=== PATIENT | female | born 1995 | race Caucasian/White ===

== ENCOUNTER 2017-04-15 08:02 | Emergency (ER) | payer OTHER ==
[~2017-04-15] VITALS: Ht 175.3 cm; Wt 75.0 kg
[2017-04-15 08:21] VITALS: BP 133/86; PULSE 107; RESP 16; TEMP 98.9; O2SAT 99
[2017-04-15 09:12] LABS: AUTOMATED NEUTROPHIL # 4.7 TH/MM3 (1.8-7.7); BASOPHIL % 0.7 % (0.0-2.0); EOSINOPHIL % 0.7 % (0.0-4.0); HEMATOCRIT 44.4 % (35.0-46.0); HEMOGLOBIN 14.9 GM/DL (11.6-15.3); LYMPH % 23.6 % (9.0-44.0); LYMPHOCYTE # 1.6 TH/MM3 (1.0-4.8); MEAN CELL VOLUME 85.7 FL (80.0-100.0); MEAN CORPUSCULAR HEMOGLOBIN 28.7 PG (27.0-34.0); MEAN CORPUSCULAR HGB CONC 33.6 % (32.0-36.0); MEAN PLATELET VOLUME 8.6 FL (7.0-11.0); MONOCYTE # 0.5 TH/MM3 (0-0.9); PLATELET COUNT 221 TH/MM3 (150-450); RED BLOOD COUNT 5.18 MIL/MM3 (4.00-5.30); RED CELL DISTRIBUTION WIDTH 13.6 % (11.6-17.2); WHITE BLOOD COUNT 6.9 TH/MM3 (4.0-11.0)
[2017-04-15 09:24] LABS: ALBUMIN 4.2 GM/DL (3.4-5.0); AST (GOT) 19 U/L (15-37); BLOOD UREA NITROGEN 6 MG/DL (7-18); CALCIUM 8.9 MG/DL (8.5-10.1); CHLORIDE 105 MEQ/L (98-107); CREATININE 0.77 MG/DL (0.50-1.00); GLOMERULAR FILTRATION RATE 92 ML/MIN (>89); GLUCOSE,RANDOM 87 MG/DL (74-106); SODIUM (NA) 137 MEQ/L (136-145)
[2017-04-15 09:25] LABS: ALT (GPT) 35 U/L (10-53)
[2017-04-15 09:27] LABS: ALKALINE PHOSPHATASE 88 U/L (45-117); TOTAL BILIRUBIN ADULT 0.4 MG/DL (0.2-1.0); TOTAL PROTEIN 8.3 GM/DL (6.4-8.2)
--- NOTE | 2017-04-15 09:34 | PD ---
HPI Chief Complaint: Psychiatric Symptoms Time Seen by Provider: 09:16 Travel History International Travel<30 days: No Contact w/Intl Traveler<30days: No Traveled to known affect area: No History of Present Illness HPI The patient was seen and examined in the presence of the nurse. This patient has been having depression and suicidal ideations. She presents as a Srinivasan act. 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 She denies alcohol or drug use. Some severity is moderate. Duration is 2 weeks. No alleviating factors. No exacerbating factors. PFSH Past Medical History Medical History: Denies Significant Hx Tetanus Vaccination: < 5 Years ?: Not Past Surgical History Surgical History: No Previous Surgery Social History Alcohol Use: No Tobacco Use: No Substance Use: No Allergies-Medications (Allergen,Severity, Reaction): Coded Allergies: latex (Verified Allergy, Unknown, 04/15/17) Reported Meds & Prescriptions Reported Meds & Active Scripts Active No Active Prescriptions or Reported Medications Review of Systems General / Constitutional: No: Fever Eyes: No: Visual changes HENT: No: Headaches Cardiovascular: No: Chest Pain or Discomfort Respiratory: No: Shortness of Breath Gastrointestinal: No: Abdominal Pain Genitourinary: No: Dysuria Musculoskeletal: No: Pain Skin: No Rash Neurologic: No: Weakness Psychiatric: Positive: Depression, Suicidal Ideations Endocrine: No: Polydipsia Hematologic/Lymphatic: No: Easy Bruising Physical Exam Narrative GENERAL: Well-nourished, well-developed patient in no apparent distress. SKIN: Focused skin assessment reveals no rash and nodules. Skin is Warm and dry. HEAD: Atraumatic. Normocephalic. EYES: Pupils equal and round. No scleral icterus. No injection or drainage. ENT: No nasal bleeding or discharge. Mucous membranes pink and moist. NECK: Trachea midline. No JVD. CARDIOVASCULAR: Regular rate and rhythm. No murmur appreciated. RESPIRATORY: No accessory muscle use. Clear to auscultation. Breath sounds equal bilaterally. GASTROINTESTINAL: Abdomen soft, non-tender, nondistended. Hepatic and splenic margins not palpable. MUSCULOSKELETAL: No obvious deformities. No clubbing. No cyanosis. No edema. NEUROLOGICAL: Awake and alert. No obvious cranial nerve deficits. Motor grossly within normal limits. Normal speech. PSYCHIATRIC: Depressed mood and flat affect; insight and judgment reduced . Data Data Last Documented VS Vital Signs Date Time Temp Pulse Resp B/P (MAP) Pulse Ox O2 Delivery O2 Flow Rate FiO2 04/15/17 08:21 98.9 107 16 133/86 (102) 99 Orders Orders Complete Blood Count With Diff (04/15/17 08:28) Comprehensive Metabolic Panel (04/15/17 08:28) Psych Screen (04/15/17 08:28) Drug Screen, Random Urine (04/15/17 08:29) Ed Urine Pregnancytest Poc (04/15/17 09:31) Labs Laboratory Tests Test 04/15/17 08:45 White Blood Count 6.9 TH/MM3 Red Blood Count 5.18 MIL/MM3 Hemoglobin 14.9 GM/DL Hematocrit 44.4 % Mean Corpuscular Volume 85.7 FL Mean Corpuscular Hemoglobin 28.7 PG Mean Corpuscular Hemoglobin Concent 33.6 % Red Cell Distribution Width 13.6 % Platelet Count 221 TH/MM3 Mean Platelet Volume 8.6 FL Neutrophils (%) (Auto) 68.0 % Lymphocytes (%) (Auto) 23.6 % Monocytes (%) (Auto) 7.0 % Eosinophils (%) (Auto) 0.7 % Basophils (%) (Auto) 0.7 % Neutrophils # (Auto) 4.7 TH/MM3 Lymphocytes # (Auto) 1.6 TH/MM3 Monocytes # (Auto) 0.5 TH/MM3 Eosinophils # (Auto) 0.0 TH/MM3 Basophils # (Auto) 0.0 TH/MM3 CBC Comment DIFF FINAL Differential Comment Blood Urea Nitrogen 6 MG/DL Creatinine 0.77 MG/DL Random Glucose 87 MG/DL Total Protein 8.3 GM/DL Albumin 4.2 GM/DL Calcium Level 8.9 MG/DL Alkaline Phosphatase 88 U/L Aspartate Amino Transf (AST/SGOT) 19 U/L Alanine Aminotransferase (ALT/SGPT) 35 U/L Total Bilirubin 0.4 MG/DL Sodium Level 137 MEQ/L Potassium Level 3.8 MEQ/L Chloride Level 105 MEQ/L Carbon Dioxide Level 25.0 MEQ/L Anion Gap 7 MEQ/L Estimat Glomerular Filtration Rate 92 ML/MIN Urine Opiates Screen NEG Urine Barbiturates Screen NEG Urine Amphetamines Screen NEG Urine Benzodiazepines Screen NEG Urine Cocaine Screen NEG Urine Cannabinoids Screen NEG MDM Medical Decision Making Medical Screen Exam Complete: Yes Emergency Medical Condition: Yes Medical Record Reviewed: Yes Differential Diagnosis Adjustment disorder, depression, suicidal ideation Narrative Course I have reviewed the patient's electronic medical record. Ordered medical clearance workup. CBC is normal Metabolic profile is normal LFTs are normal Urine is negative Toxicology screen is negative Psych screen has been ordered as she is here under Srinivasan act. She is agreeable and willing to discuss things with them. Patient is medically stable and will get psychiatric evaluation to determine disposition Diagnosis Primary Impression: Depression with suicidal ideation Scripts No Active Prescriptions or Reported Meds Spencer Mcdonough MD Apr 15, 2017 09:34
[2017-04-15 11:02] VITALS: BP 124/89; PULSE 99; RESP 16; TEMP 98.7; O2SAT 98
--- NOTE | 2017-04-15 16:01 | PD ---
Physical Exam Date Seen by Provider: Apr 15, 2017 Time Seen by Provider: 16:00 Narrative 22-year-old female previously medically cleared for Srinivasan act, and psychiatric evaluation. Patient was seen by psychiatric services and felt to be psychiatrically stable for discharge. She remains medically stable at this time. Patient is felt safe for discharge. Patient to follow-up per psychiatric note. Data Data Last Documented VS Vital Signs Date Time Temp Pulse Resp B/P (MAP) Pulse Ox O2 Delivery O2 Flow Rate FiO2 04/15/17 11:02 98.7 99 16 124/89 (101) 98 Room Air Orders Orders Complete Blood Count With Diff (04/15/17 08:28) Comprehensive Metabolic Panel (04/15/17 08:28) Psych Screen (04/15/17 08:28) Drug Screen, Random Urine (04/15/17 08:29) Ed Urine Pregnancytest Poc (04/15/17 09:31) Diet Regular Basic (04/15/17 Lunch) Labs Laboratory Tests Test 04/15/17 08:45 White Blood Count 6.9 TH/MM3 Red Blood Count 5.18 MIL/MM3 Hemoglobin 14.9 GM/DL Hematocrit 44.4 % Mean Corpuscular Volume 85.7 FL Mean Corpuscular Hemoglobin 28.7 PG Mean Corpuscular Hemoglobin Concent 33.6 % Red Cell Distribution Width 13.6 % Platelet Count 221 TH/MM3 Mean Platelet Volume 8.6 FL Neutrophils (%) (Auto) 68.0 % Lymphocytes (%) (Auto) 23.6 % Monocytes (%) (Auto) 7.0 % Eosinophils (%) (Auto) 0.7 % Basophils (%) (Auto) 0.7 % Neutrophils # (Auto) 4.7 TH/MM3 Lymphocytes # (Auto) 1.6 TH/MM3 Monocytes # (Auto) 0.5 TH/MM3 Eosinophils # (Auto) 0.0 TH/MM3 Basophils # (Auto) 0.0 TH/MM3 CBC Comment DIFF FINAL Differential Comment Blood Urea Nitrogen 6 MG/DL Creatinine 0.77 MG/DL Random Glucose 87 MG/DL Total Protein 8.3 GM/DL Albumin 4.2 GM/DL Calcium Level 8.9 MG/DL Alkaline Phosphatase 88 U/L Aspartate Amino Transf (AST/SGOT) 19 U/L Alanine Aminotransferase (ALT/SGPT) 35 U/L Total Bilirubin 0.4 MG/DL Sodium Level 137 MEQ/L Potassium Level 3.8 MEQ/L Chloride Level 105 MEQ/L Carbon Dioxide Level 25.0 MEQ/L Anion Gap 7 MEQ/L Estimat Glomerular Filtration Rate 92 ML/MIN Urine Opiates Screen NEG Urine Barbiturates Screen NEG Urine Amphetamines Screen NEG Urine Benzodiazepines Screen NEG Urine Cocaine Screen NEG Urine Cannabinoids Screen NEG MDM Medical Record Reviewed: Yes Supervised Visit with RICHARD: Yes Narrative Course 22-year-old female previously medically cleared for Srinivasan act, and psychiatric evaluation. Patient was seen by psychiatric services and felt to be psychiatrically stable for discharge. She remains medically stable at this time. Patient is felt safe for discharge. Patient to follow-up per psychiatric note. Diagnosis Primary Impression: Depression with suicidal ideation Patient Instructions: General Instructions Scripts No Active Prescriptions or Reported Meds Disposition: 01 DISCHARGE HOME Condition: Stable Corona Dodd Apr 15, 2017 16:01
--- NOTE | 2017-04-15 18:44 | PD.PSY.CON ---
Provisional Diagnosis Admission Date History of Present Illness Service Psychiatry Consult Requested By ER Reason for Consult SI Primary Care Physician Cipriano Goel MD HPI The patient is a 22-year-old woman, domiciled alone in [facility], 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 On psychiatric evaluation today patient is a little bit anxious, tearful, requesting to be discharged. Patient says that she made a mistake his stated that she wanted to kill herself. She says that she is seeing very desperately and overwhelmed with her job. She says that she cannot control her students and she feels like the situation got out hands. She reports frustration, guiltiness, but she denies hopelessness, denies anhedonia, denies worthlessness , she denies suicidal and homicidal ideation, she denies visual and auditory hallucinations. She denies the use of illegal drugs and alcohol. I spoke for collateral information with Arjun Meadows, who is her father, and he confirms that the patient basically doesn't have any psychiatric history other than mild depression. Says that this is the first job of his daughter and she has been feeling overwhelmed for a couple weeks now. He does not feel that she is suicidal, she is just very anxious. He agrees with taken the patient with him to his house and her mother house to take care closely of her. Review of Systems Constitutional: DENIES: Diaphoretic episodes, Fatigue, Fever, Weight gain, Weight loss, Chills, Dizziness, Change in appetite, Night Sweats Endocrine: DENIES: Abnorml menstrual pattern, Heat/cold intolerance, Polydipsia , Polyuria, Polyphagia Eyes: DENIES: Blurred vision, Diplopia, Eye inflammation, Eye pain, Vision loss , Photosensitivity, Double Vision Ears, nose, mouth, throat: DENIES: Tinnitus, Hearing loss, Vertigo, Nasal discharge, Oral lesions, Throat pain, Hoarseness, Ear Pain, Running Nose, Epistaxis, Sinus Pain, Toothache, Odynophagia Respiratory: DENIES: Apneas, Cough, Snoring, Wheezing, Hemoptysis, Sputum production, Shortness of breath Cardiovascular: DENIES: Chest pain, Palpitations, Syncope, Dyspnea on Exertion , PND, Lower Extremity Edema, Orthopnea, Claudication Gastrointestinal: DENIES: Abdominal pain, Black stools, Bloody stools, Constipation, Diarrhea, Nausea, Vomiting, Difficulty Swallowing, Anorexia Genitourinary: DENIES: Abnormal vaginal bleeding, Dysmenorrhea, Dyspareunia, Sexual dysfunction, Urinary frequency, Urinary incontinence, Urgency, Hematuria , Dysuria, Nocturia, Vaginal discharge Musculoskeletal: DENIES: Joint pain, Muscle aches, Stiffness, Joint Swelling, Back pain, Neck pain Integumentary: DENIES: Abnormal pigmentation, Pruritus, Rash, Nail changes, Breast masses, Breast skin changes, Nipple discharge Hematologic/lymphatic: DENIES: Bruising, Lymphadenopathy Immunologic/allergic: DENIES: Eczema, Urticaria Psychiatric: COMPLAINS OF: Anxiety, Depression, DENIES: Confusion, Mood changes , Hallucinations, Agitation, Suicidal Ideation, Homicidal Ideation, Delusions Past Family Social History Coded Allergies: latex (Verified Allergy, Unknown, 04/15/17) No Active Prescriptions or Reported Meds Family Psych History No family psychiatric history Social History Patient was born and raised in [place], she lives in [facility], she single, 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 2) High level of education, family support Physical Exam Vital Signs Vital Signs Date Time Temp Pulse Resp B/P (MAP) Pulse Ox O2 Delivery O2 Flow Rate FiO2 04/15/17 16:47 04/15/17 11:02 98.7 99 16 98 Room Air Lab Results Test 04/15/17 08:45 White Blood Count 6.9 TH/MM3 Red Blood Count 5.18 MIL/MM3 Hemoglobin 14.9 GM/DL Hematocrit 44.4 % Mean Corpuscular Volume 85.7 FL Mean Corpuscular Hemoglobin 28.7 PG Mean Corpuscular Hemoglobin Concent 33.6 % Red Cell Distribution Width 13.6 % Platelet Count 221 TH/MM3 Mean Platelet Volume 8.6 FL Neutrophils (%) (Auto) 68.0 % Lymphocytes (%) (Auto) 23.6 % Monocytes (%) (Auto) 7.0 % Eosinophils (%) (Auto) 0.7 % Basophils (%) (Auto) 0.7 % Neutrophils # (Auto) 4.7 TH/MM3 Lymphocytes # (Auto) 1.6 TH/MM3 Monocytes # (Auto) 0.5 TH/MM3 Eosinophils # (Auto) 0.0 TH/MM3 Basophils # (Auto) 0.0 TH/MM3 CBC Comment DIFF FINAL Differential Comment Blood Urea Nitrogen 6 MG/DL Creatinine 0.77 MG/DL Random Glucose 87 MG/DL Total Protein 8.3 GM/DL Albumin 4.2 GM/DL Calcium Level 8.9 MG/DL Alkaline Phosphatase 88 U/L Aspartate Amino Transf (AST/SGOT) 19 U/L Alanine Aminotransferase (ALT/SGPT) 35 U/L Total Bilirubin 0.4 MG/DL Sodium Level 137 MEQ/L Potassium Level 3.8 MEQ/L Chloride Level 105 MEQ/L Carbon Dioxide Level 25.0 MEQ/L Anion Gap 7 MEQ/L Estimat Glomerular Filtration Rate 92 ML/MIN Urine Opiates Screen NEG Urine Barbiturates Screen NEG Urine Amphetamines Screen NEG Urine Benzodiazepines Screen NEG Urine Cocaine Screen NEG Urine Cannabinoids Screen NEG Mental Status Examination Appearance: Appropriate Consciousness: Alert Orientation: x4 Motor Activity: Normal gait Speech: Unremarkable Language: Adequate Fund of Knowledge: Adequate Attention and Concentration: Adequate Memory: Unremarkable Mood: Sad Affect: Irritable, Sad Thought Process & Associations: Intact Thought Content: Appropriate Hallucination Type: None Delusion Type: None Suicidal Ideation: No Suicidal Plan: No Suicidal Intention: No Homicidal Ideation: No Homicidal Plan: No Homicidal Intention: No Insight: Fair Judgment: Impulsive Assessment & Plan Problem List: (1) Adjustment disorder with mixed anxiety and depressed mood ICD Codes: F43.23 - Adjustment disorder with mixed anxiety and depressed mood Assessment & Plan: At the moment of this evaluation the patient presents with acute level of anxiety, frustration and overwhelmed due to high level of stress in her job. As expressed suicidal ideation, but she reports that he was in the context of despair. At this moment she denies suicidal ideation, she denies homicidal ideation, she denies visual and auditory hallucinations. Parents who were present in the ER agree with taking the patient back home and make sure that she follows outpatient with psychiatry. She does not meet criteria for involuntary psychiatric admission at this moment. She can continue psychiatric care as an outpatient. Will lift srinivasan act Assessment & Plan Estimated LOS: Prashant Jackson MD Apr 15, 2017 18:44
== END 2017-04-15 16:58 | disposition home or self-care (01) ==
LOC: NEDAMB 08:02 → NEPJ 16:58
DX: R45.851 Suicidal ideations (principal)
CPT/HCPCS: 80053; 80307; 84703; 85025; 99284